=== PATIENT | male | born 1955 | race Caucasian/White ===

== ENCOUNTER → 2022-12-09 13:13 | Outpatient (BNVA) | payer BC, MEDICAID, SELFPAY | PROVIDERS: Referring Provider Psychiatry & Neurology Neurology; Visit Provider Physician Assistant | DX: R29.898 Other symptoms and signs involving the musculoskeletal system (principal); R20.2 Paresthesia of skin | CPT/HCPCS: 72110 ==

== ENCOUNTER 2022-12-24 14:30 | Outpatient (CLI) | payer BC, MEDICAID, SELFPAY ==
--- NOTE | 2022-12-24 15:15 | MR_ITS ---
WS: [email or web address] MRI LEFT LOWER LEG with and without CONTRAST. COMPARISON: Radiograph 09/28/2021, prior MRI 05/22/2022 Multiplanar, multisequence imaging is performed with and without contrast. MultiHance 20 mL IV. Marker is placed along the distal lower extremity in the area of pain. No mass or abnormal signal is identified in this location. There is mild soft tissue edema along the anterior to the distal lower e xtremity. This is subcutaneous edema. There is no fracture or healed fracture. The cortex is normal. On the postcontrast imaging there is no soft tissue enhancement. The adjacent muscles and tendons are normal. MR/MR lower leg LT wo/w con [id number] IMPRESSION: Negative MRI LEFT lower extremity. No mass or bone signal abnormality. There is a small amount of subcutaneous edema.
[2022-12-24] MEDS: gadobenate dimeglumine 20 mL vial IV (16:14)
== END 2022-12-24 23:00 | disposition home or self-care (01) ==
PROVIDERS: PCP Family Medicine; Visit Provider Psychiatry & Neurology Neurology
DX: R60.0 Localized edema (principal); R20.2 Paresthesia of skin; R29.898 Other symptoms and signs involving the musculoskeletal system
CPT/HCPCS: 73720; A9577

== ENCOUNTER 2023-01-07 09:19 | Outpatient (CLI) | payer BC, MEDICAID, SELFPAY ==
--- NOTE | 2023-01-07 10:15 | MR_ITS ---
WS: [email or web address] MRI LUMBAR SPINE WITH AND WITHOUT CONTRAST. HISTORY: R20.2 - Paresthesia of skin COMPARISON: 05/22/2022 TECHNIQUE: Sagittal and axial multisequence imaging is submitted. Postcontrast imaging with 20 mL IV MultiHance. Normal lumbar alignment with no compression fractures or marrow edema. Multilevel hemangiomas within the cervical vertebral bodies. Disc spaces and vertebral body heights are well-preserved. Conus terminates normally at L1. L1-L2: Normal. L2-L3: Moderate ligamentum flavum and facet arthritis. Very mild subarticular recess stenosis. No dis c protrusion. L3-L4: Mild annular disc bulging and osteophytic ridging. Mild to moderate ligamentum flavum and face t arthritis. There is mild encroachment upon the subarticular recesses. Similar to the prior study. V tha minimal foraminal narrowing. L4-L5: Mild annular disc bulging with ligamentum flavum and facet arthritis. Disc encroachment into t he subarticular recesses. Mild central and bilateral subarticular and foraminal stenosis. There is di sc contacting the traversing L5 nerve roots. Similar to the prior study. L5-S1: Mild disc bulging. Mild facet arthritis. No stenosis. No discitis or osteomyelitis. No enhancing masses. MR/MR lumbar spine wo/w con [id number] IMPRESSION: 1. Mild central, bilateral subarticular recess and foraminal stenosis at L4-5. 2. Disc encroachment into the subarticular recesses at L4-5 with contact and d eformity of the traversing L5 nerve roots. 3. Mild encroachment into the subarticular recesses at L3-4. Minimal bilateral foraminal narrowing at L3-4. 4. Facet joint arthritis at L2-3 and L5-S1.
[2023-01-07] MEDS: gadobenate dimeglumine 20 mL vial IV (11:56)
== END 2023-01-07 09:20 | disposition home or self-care (01) ==
PROVIDERS: PCP Family Medicine; Visit Provider Psychiatry & Neurology Neurology
DX: R20.2 Paresthesia of skin (principal); R29.898 Other symptoms and signs involving the musculoskeletal system; M48.061 Spinal stenosis, lumbar region without neurogenic claudication; M47.817 Spondylosis without myelopathy or radiculopathy, lumbosacral region
CPT/HCPCS: 72158; A9577

== ENCOUNTER → 2023-03-19 08:01 | Outpatient (BNVA) | payer BC, MEDICAID, SELFPAY | PROVIDERS: PCP Family Medicine; Visit Provider Orthopaedic Surgery | DX: M47.816 Spondylosis without myelopathy or radiculopathy, lumbar region (principal); M48.062 Spinal stenosis, lumbar region with neurogenic claudication | CPT/HCPCS: 36415; 72100; 80053; 81003; 85025 ==

== ENCOUNTER 2023-04-01 07:32 | Day surgery (SDC) | payer BC, MEDICAID, SELFPAY ==
[2023-03-30 08:44] VITALS: BMI 30.1
[2023-04-01] VITALS (10 sets, daily range): BP systolic 111–163; BP diastolic 66–94; PULSE 71–94; RESP 8–24; TEMP 36.1–36.4; O2SAT 95–99
--- NOTE | 2023-04-01 | XR_ITS ---
WS: [email or web address] RADIOGRAPHS LUMBAR SPINE; 2 IMAGES HISTORY: JORDYN PICS COMPARISON: None available. Intraoperative imaging during spinal decompression. IMPRESSION: Intraoperative imaging during spinal decompression.
[2023-04-01] MEDS: sodium chloride 0.9% 1,000 ML 30 ML IV (08:15)
--- NOTE | 2023-04-01 09:44 | ANES.PREANE2 ---
Pre-Anesthetic Assessment Height/Weight: Height 1.78 m Weight 95.254 kg Temp Pulse Resp BP Pulse Ox O2 Del Method 97 F L 71 16 157/94 96 Room Air 04/01/23 08:03 04/01/23 08:03 04/01/23 08:03 04/01/23 08:03 04/01/23 08:03 04/01/23 08:03 Preop Diagnosis: Lumbar stenosis with neurogenic claudication, left foot drop Operation Date: 04/01/23 09:50 Proposed Procedures p left L4-5 minimally invasive decompression(Left) - Roosevelt Jordan DO Familial anesthetic complications: none Was Beta Dago taken within 24 hours: N/A Was Clonidine taken within 24 hours: N/A Last intake: Intake Last Liquid Date 03/31/23 Last Liquid Time 23:15 Last Solid Date 03/31/23 Last Solid Time 20:00 Social No alcohol and No tobacco Exam alert, oriented x 3, clear to auscultation bilaterally and regular rate & rhythm Airway Submandibular: within normal limits Cervical ROM: within normal limits Mallampati: Class II Dentition: chipped Musc/skel Lower Back Pain and Osteoarthritis/DJD Neuropsych Neuropathy left foot drop Anesthetic Plan ASA status: 3 Anesthesia: General Medications/Allergies Home Medications Medication Instructions Recorded Confirmed Last Taken Type tadalafil 5 mg tablet 5 mg PO DAILY 12/03/22 04/01/23 04/01/23 History tiotropium bromide 18 mcg capsule 1 cap inhalation DAILY 12/03/22 04/01/23 04/01/23 History with inhalation device (Spiriva with HandiHaler) Allergies Allergy/AdvReac Type Severity Reaction Status Date / Time No Known Allergies Allergy Verified 03/20/23 10:37 Current Medications Generic Name Dose Route Start Last Admin Trade Name Freq PRN Reason Stop Dose Admin Sodium Chloride 1,000 mls @ 30 mls/hr 04/01/23 08:00 04/01/23 08:15 Sodium Chloride 0.9% IV 04/02/23 07:59 30 mls/hr .Q24H ELIZABETH Administration PFSH Anesthesia Family History Mother Diabetes Social History Smoking and tobacco status: never smoked Alcohol intake: never Substance/Drug Use: never Data Anesthesia Cardiac Studies: No Data to Display
--- NOTE | 2023-04-01 09:56 | W.PM.OPSUD ---
Surgery/Procedure H&P Update DATE OF PROCEDURE: April 01, 2023 DATE H&P PERFORMED: 03/19/23 H&P UPDATE INFORMATION: I have reviewed H&P completed within last 30 days, I have examined patient prior to procedure and No changes to prior documentation PREOP DIAGNOSIS: Lumbar stenosis with neurogenic claudication, left foot drop PLANNED PROCEDURE: Operation Date: 04/01/23 09:50 Proposed Procedures p left L4-5 minimally invasive decompression(Left) - Roosevelt Jordan DO
[2023-04-01] MEDS: ceFAZolin 2,000 MG in sodium chloride 0.9% (plus) 50 ML 100 MG IV (10:28)
[2023-04-01] MEDS: lidocaine-epi 2% 20 mL INJ INJECTION (10:52)
--- NOTE | 2023-04-01 11:42 | P.OP_ITS ---
Operative Report Date of procedure: April 01, 2023 Pre-op diagnosis: Lumbar stenosis with neurogenic claudication Post-op diagnosis: same Procedure done: Left L4-5 laminectomy with partial facetectomy Surgeon: Roosevelt Jordan DO Instructional Paraprofessional: Charlie Horta Instructional Paraprofessional: The surgical garment assembly supervisor, Charlie Horta, DAVID was needed for his expertise under the microscope. He was important and necessary throughout the procedure to complete in a safe and timely manner. He assisted with patient positioning prepping and draping tissue retraction suctioning of the operative field protection of the dural sac and tissue closure Estimated blood loss (mL): 5 Procedure: Left L4-5 laminectomy with partial facetectomy Patient is brought to the operative suite. After undergoing anesthesia they are placed in the prone position. All areas of impingement are well padded. Patient is then prepped and draped in the normal sterile fashion. A skin incision is made over the L4-5 level. This is confirmed under c-arm guidance. A series of dilators are passed and the tubular retractor is docked on the L4 lamina. A bovie is used to clear the soft tissue off the lamina and the L 4/5 facet joint. A high speed isidro is then used to perform the laminectomy and take down the medial aspect of the L 4/5 facet joint. A kerrison rongeure was then used to take down the remaining lamina and smooth the edge of the laminectomy up to the point where the ligamentum flavum attaches. Attention was then brought to the medial aspect of the facet joint. The remaining medial aspect of the superior and inferior aspect of the facet joint were taken down with the kerrison from the pedicle of L4 to L 5. The facet joint had significant hypertrophy. Attention was then brought to the Ligamentum Flavum. The ligament was taken down from the lamina of L4 to L5 and out medially to the remaining facet joint. The ligament was thick. The dura was then exposed. The dura was in good repair. The L4 nerve was then traced with a curette out the L4/5 foramen and found to be adequately decompressed. The L5 nerve was traced with a curette around the L5 pedicle. The lateral recess was opened with a kerrison helping to further decompress the L5 nerve. Wound is then irrigated copiously with saline and surgiflo is used to stop any bleeding. The tubular retractor is removed and the wound is closed with vicryl and monocryl suture. Glue is then used to protect the wound. A sterile dressing is then placed. Patient was then placed in the supine position and transferred to the PACU in stable condition.
[2023-04-01] MEDS: HYDROcodone-acetaminophen 5-325 mg Tablet 2 TAB PO (12:38)
--- NOTE | 2023-04-01 13:55 | ANE.PACU2 ---
Inpatient post-anesthesia follow up: Airway intact: Yes Vital signs: Temperature 97.5 F Pulse Rate 89 Respiratory Rate 16 Blood Pressure 140/84 Pulse Oximetry 96 Oxygen Delivery Me thod Room Air Oxygen Flow Rate 4 Fraction of Inspir ed Oxygen Hydration adequate: Yes Nausea and vomiting: No Pain level: 3 Mental status: Baseline
== END 2023-04-01 12:50 | disposition home or self-care (01) ==
PROVIDERS: PCP Family Medicine; Visit Provider Orthopaedic Surgery
PROC: (CPT 63005; principal; 2023-04-01 09:40)
DX: M48.062 Spinal stenosis, lumbar region with neurogenic claudication (principal)
CPT/HCPCS: 63047; 72020; 76000; J0131; J0690; J1100; J2405; J2704; J2710; J3010; J3490; J7030

== ENCOUNTER → 2023-06-30 10:39 | Outpatient (BNVA) | payer BC, MEDICAID, SELFPAY | PROVIDERS: PCP Family Medicine; Visit Provider Physician Assistant | DX: Z98.890 Other specified postprocedural states (principal) | CPT/HCPCS: 72100 ==

== ENCOUNTER 2023-12-03 07:52 | Outpatient (CLI) | payer BC, MEDICAID, SELFPAY ==
--- NOTE | 2023-12-03 08:00 | MR_ITS ---
WS: [email or web address] MRI LUMBAR SPINE NONCONTRAST HISTORY: Continued back pain. Recent surgery. COMPARISON: 01/07/2023 TECHNIQUE: Sagittal and axial multisequence imaging is submitted. Mild increase in thoracic kyphosis. Normal lumbar alignment. There are a few small vertebral body hemangiomas throughout the lumbar verte bral bodies. No marrow edema and no fracture. Disc spaces are narrowed and desiccated. Conus terminates normally at L1-2 disc level. L1-L2: Mild ligamentum flavum hypertrophy. No stenosis. L2-L3: Very mild annular disc bulging with moderate ligamentum flavum and mild facet arthritis. No si gnificant stenosis. L3-L4: Diffuse mild annular disc bulging encroaching upon the ventral thecal sac and subarticular rec esses. Disc contacts the traversing L4 nerve roots. Ligamentum flavum and facet arthritis. Mild centr al, bilateral subarticular recess and foraminal stenosis. L4-L5: Diffuse annular disc bulging with encroachment upon the ventral thecal sac and the subarticula r recesses. There is contact on the traversing L5 nerve roots. Moderate facet joint arthritis and lig amentum flavum hypertrophy. Mild central with bilateral subarticular recess stenosis. L5-S1: Mild annular disc bulging and facet arthritis. Mild LEFT foraminal narrowing. Paravertebral soft tissues are negative. MR/MR lumbar spine wo con* [id number] IMPRESSION: 1. L3-4: Continued disc contact in the subarticular recesses and traversing L4 nerve roots. Mild central, bilateral subarticular recess and foraminal stenosi s. 2. L4-5: Continued mild central with bilateral subarticular recess stenosis. T here is continued contact and deformity of the traversing L5 roots. 3. L5-S1: Mild LEFT foraminal narrowing. 4. No fractures.
== END 2023-12-03 07:53 | disposition home or self-care (01) ==
LOC: RAD 07:52
PROVIDERS: PCP Family Medicine; Visit Provider Orthopaedic Surgery
DX: Z98.890 Other specified postprocedural states (principal); M48.062 Spinal stenosis, lumbar region with neurogenic claudication; M51.36 Other intervertebral disc degeneration, lumbar region; M47.896 Other spondylosis, lumbar region; M46.06 Spinal enthesopathy, lumbar region
CPT/HCPCS: 72148

== ENCOUNTER → 2024-03-03 12:53 | Outpatient (BNVA) | payer BC, MEDICAID, SELFPAY | PROVIDERS: PCP Family Medicine; Visit Provider Orthopaedic Surgery | DX: Z98.890 Other specified postprocedural states (principal); M48.062 Spinal stenosis, lumbar region with neurogenic claudication | CPT/HCPCS: 72110; 72220 ==

== ENCOUNTER → 2024-05-03 15:20 | Outpatient (BNVA) | payer BC, MEDICAID, SELFPAY | PROVIDERS: PCP Family Medicine; Visit Provider Orthopaedic Surgery | DX: M54.9 Dorsalgia, unspecified (principal) | CPT/HCPCS: 72100 ==

== ENCOUNTER → 2024-08-02 15:04 | Outpatient (BNVA) | payer BC, MEDICAID, SELFPAY | PROVIDERS: PCP Family Medicine; Visit Provider Orthopaedic Surgery | DX: M48.062 Spinal stenosis, lumbar region with neurogenic claudication (principal) | CPT/HCPCS: 72110 ==